=== PATIENT | female | born 1970 | race Two or more races ===

== ENCOUNTER 2024-03-24 21:23 | Emergency (ER) | payer MEDICAID, OTHER ==
[~2024-03-24] VITALS: Ht 167.6 cm; Wt 99.8 kg
[2024-03-24 22:09] VITALS: BP 166/78; TEMP 98.1; O2SAT 98
== END 2024-03-24 22:20 | disposition left against medical advice (07) ==
LOC: ER 21:25
DX: R10.9 Unspecified abdominal pain (principal); I10 Essential (primary) hypertension; Z53.21 Procedure and treatment not carried out due to patient leaving prior to being seen by health care provider